=== PATIENT | female | born 1955 | race Caucasian/White ===

== ENCOUNTER 2017-02-12 07:24 | Day surgery (SDC) ==
[2016-02-17 09:50] VITALS: BMI 24.6
[2017-02-12] MEDS ORDERED: LIDOCAINE 1% 20 ML MDV ID ONE (07:50)
[2017-02-12] MEDS ORDERED: VERSED ONE (08:15)
[2017-02-12] MEDS ORDERED: DIPRIVAN 20 ML VIAL IVP ONE (08:15)
[2017-02-12 09:35] VITALS: BP 150/93; TEMP 97.9
--- NOTE | 2017-02-12 14:46 | OP ---
PROCEDURE: COLONOSCOPY . ENDOSCOPIST: Yenni MOMIN M.D. INDICATION: SCREENING INSTRUMENT: PCFH-190. MEDICATION: PER ANESTHESIA. PROCEDURE: The patient was positioned for colonoscopy. The digital rectal exam was negative. The colonoscope was inserted through the anus and advanced to the cecum. The cecum was identified using the ileocecal valve and the appendiceal orifice as landmarks. The scope was slowly withdrawn through an adequately prepped colon. Careful inspection made of each clonic segment and the scope is withdrawn in a circumferential fashion. Care is taken to inspect the proximal side of the ileocecal valve, haustral folds and flexures and rectal valves. The exam was somewhat torturous. No evidence for significant diverticular disease. No evidence for polyp or mass. The Retroflex exam was otherwise normal. The patient tolerated the procedure without immediate complication. Withdraw time 10 minutes and 17 seconds. PLAN: 1. Suggest repeat exam again in 5-10 years CC: Dr. Jacob WOODS
== END 2017-02-12 09:54 | disposition home or self-care (01) ==
LOC: SURG 07:24
PROVIDERS: ATTEND Internal Medicine Gastroenterology
DX: Z12.11 Encounter for screening for malignant neoplasm of colon (principal)
CPT/HCPCS: 00810; G0121

== ENCOUNTER 2017-11-26 10:07 | Outpatient (CLI) ==
[2016-02-17 09:50] VITALS: BMI 24.6
--- NOTE | 2017-11-26 10:56 | US ---
EXAM: Left lower extremity venous Doppler History: Left lower extremity pain and edema. Technique: Multiple sonographic images through the left lower extremity were obtained. Color duplex Doppler was used to interrogate vascular flow. Findings: The left common femoral, greater saphenous, profunda, superficial femoral, popliteal, jolene juloi, posterior tibial and anterior tibial veins demonstrate spontaneous flow with normal compression and normal augmentation. Impression: No sonographic evidence for deep venous thrombosis
== END 2017-11-26 10:08 | disposition home or self-care (01) ==
LOC: RAD 10:07
PROVIDERS: ATTEND Family Medicine
DX: T14.8XXA Other injury of unspecified body region, initial encounter (principal); M79.605 Pain in left leg; R60.0 Localized edema; Z79.890 Hormone replacement therapy